=== PATIENT | male | born 1960 | race Caucasian/White ===

== ENCOUNTER 2016-07-20 15:16 | Emergency (ER) | payer OTHER ==
[~2016-07-20] VITALS: Ht 167.6 cm; Wt 72.7 kg
[~2016-07-20 15:16] MED LIST: MOBIC15 MG PO; PEN-VEE K500 MG PO; PERCOCET 325 MG1 TA2 PO
[2016-07-20 15:24] VITALS: TEMP 97.5
[2016-07-20] MEDS ORDERED: FLEXERIL 1010 MG/TAB PO (16:08)
[2016-07-20 16:16] VITALS: BP 125/64; PULSE 75
== END 2016-07-20 16:23 | disposition home or self-care (01) ==
LOC: COL.ER 15:16
DX: S23.3XXA Sprain of ligaments of thoracic spine, initial encounter (principal); M62.838 Other muscle spasm
CPT/HCPCS: J1885; J2360

== ENCOUNTER 2019-02-12 08:30 | Outpatient (RCR) | payer OTHER ==
[~2019-02-12 08:30] MED LIST changes: +FLEXERIL 1010 MG/TAB PO
== END 2019-03-20 16:55 | disposition home or self-care (01) ==
LOC: WSC 08:30
DX: M17.12 Unilateral primary osteoarthritis, left knee (principal); M76.52 Patellar tendinitis, left knee

== ENCOUNTER 2019-09-10 20:31 | Emergency (ER) | payer OTHER ==
[~2019-09-10] VITALS: Ht 167.6 cm; Wt 79.1 kg
[2019-09-10 20:33] VITALS: BP 151/82; TEMP 97.4
[2019-09-10] MEDS ORDERED: VICODIN HP 10 PO (20:50)
[2019-09-10 21:12] LABS: BASO % 0.3 % (0.0-2.0); EOS # 0.1 (0.0-0.7); EOS % 1.8 % (0-4.0); GRAN # 4.3 (1.4-6.5); GRAN % 65.5 % (42.2-75.2); HEMATOCRIT 50.6 % (42.0-52.0); HEMOGLOBIN 17.4 g/dl (13.5-18.0); LYMPH # 1.3 (1.2-3.4); LYMPH % 19.7 % (20.0-51.0); MEAN CELL VOLUME 90 fl (80.0-100.0); MEAN CORPUSCULAR HEMOGLOBIN 31 pg (27.0-31.0); MEAN CORPUSCULAR HGB CONC 34 g/dl (33.0-37.0); MEAN PLATELET VOLUME 10.2 fl (7.4-10.4); MONO # 0.8 (0.1-0.6); MONO % 12.2 % (1.7-9.3); PLATELET COUNT 197 K/mm3 (130-400); RED BLOOD COUNT 5.65 M/mm3 (4.20-5.60); REDCELL DISTRIBUTION WIDTH-CV 12.7 % (11.5-14.5)
[2019-09-10 21:26] LABS: ALBUMIN 4.6 gm/dL (3.5-5.0); BILIRUBIN,TOTAL 0.8 mg/dL (0.0-1.0); C-REACTIVE PROTEIN 2.6 mg/dL (0.0-0.9); CALCIUM 8.8 mg/dL (8.4-10.2); CREATININE, serum 0.8 (0.66-1.25); TOTAL PROTEIN 7.9 gm/dL (6.4-8.2)
[2019-09-10] MEDS ORDERED: PHENERGAN 25 TA25 MG PO (21:26)
[2019-09-10 22:31] VITALS: PULSE 86
== END 2019-09-10 22:27 | disposition home or self-care (01) ==
LOC: COL.ER 20:31
PROVIDERS: Emergency Medicine
DX: K52.9 Noninfective gastroenteritis and colitis, unspecified (principal)
CPT/HCPCS: J2550; J7030

== ENCOUNTER → 2023-04-25 | Outpatient (CLI) | payer OTHER ==
[~2023-04-25] MED LIST changes: +PHENERGAN 25 TA25 MG PO; +VICODIN HP 10 PO
== END ==
LOC: COL.RAD 05:23
DX: I82.812 Embolism and thrombosis of superficial veins of left lower extremity (principal)

== ENCOUNTER 2024-02-23 22:00 | Emergency (ER) | payer OTHER ==
[~2024-02-23] VITALS: Ht 167.6 cm; Wt 72.7 kg
[2024-02-23 22:03] VITALS: BP 137/87; TEMP 98.1
[2024-02-23] MEDS ORDERED: Ketorolac 30 MG/ML VIAL IM ONE (22:15)
[2024-02-23] MEDS ORDERED: NAPROSYN500 MG PO (22:43)
[2024-02-23 23:03] VITALS: PULSE 78
== END 2024-02-23 22:55 | disposition home or self-care (01) ==
LOC: COL.ER 22:00
DX: S60.212A Contusion of left wrist, initial encounter (principal); W01.0XXA Fall on same level from slipping, tripping and stumbling without subsequent striking against object, initial encounter; Y92.009 Unspecified place in unspecified non-institutional (private) residence as the place of occurrence of the external cause
CPT/HCPCS: J1885